=== PATIENT | male | born 2005 | race Caucasian/White ===

== ENCOUNTER 2024-09-12 15:15 | Emergency (ER) | payer MEDICAID, OTHER ==
[~2024-09-12] VITALS: Ht 167.6 cm; Wt 63.5 kg
[~2024-09-12 15:15] MED LIST: NO MEDS
[2024-09-12 15:27] VITALS: BP 121/85; TEMP 98.1; O2SAT 99
[2024-09-12] MEDS: CEFTRIAXONE 1 G VIAL IM ONE (17:00)
[2024-09-12] MEDS ORDERED: DOXY100C2 PO (17:21)
[2024-09-12] MEDS ORDERED: LIDOCAINE 1% INJ 50 ML MDV IJ ONE (17:45)
[2024-09-12] MEDS ORDERED: CEFTRIAXONE 1 G VIAL ONE (17:45)
[2024-09-12 18:36] LABS: APPEARANCE,URINE SLIGHTLY CLOUDY (CLEAR); BLOOD, URINE NEGATIVE Ery/uL (NEGATIVE); LEUKOCYTE ESTERASE ,URINE NEGATIVE (NEGATIVE); NITRITE, URINE NEGATIVE (NEGATIVE); UGLUCOSE NEGATIVE (NEGATIVE)
[2024-09-12 19:17] LABS: ADD URINE CULTURE NO; SQUAMOUS EPITHELIAL CELL,UR None Seen /HPF (None Seen)
== END 2024-09-12 18:29 | disposition home or self-care (01) ==
LOC: ER 15:22
DX: R36.9 Urethral discharge, unspecified (principal); Z11.3 Encounter for screening for infections with a predominantly sexual mode of transmission
CPT/HCPCS: 99283; 96372; 81001; 87529; 87536; J3490; J0696